=== PATIENT | male | born 1965 | race Two or more races ===

== ENCOUNTER 2017-02-12 12:37 | Day surgery (SDC) | payer OTHER ==
[2017-02-12 13:48] VITALS: BMI 23.6
[2017-02-12] MEDS ORDERED: MIDAZOLAM HCL 2 MG/2 ML SINGLE DOSE VIAL ONE (15:54)
[2017-02-12] MEDS ORDERED: PROPOFOL 20 ML ONE (15:54)
[2017-02-12] MEDS ORDERED: ceFAZolin SODIUM 1 GM VIAL ONE (15:56)
[2017-02-12] MEDS ORDERED: ONDANSETRON 4 MG/2 ML VIAL ONE ×2 (15:56→18:19)
[2017-02-12] MEDS ORDERED: KETOROLAC TROMETHAMINE 30 MG/1 ML VIAL ONE (15:56)
[2017-02-12] MEDS ORDERED: DEXAMETHASONE SOD PHOSPHATE 4 MG/1 ML VIAL ONE (15:56)
[2017-02-12] MEDS ORDERED: ROPIVACAINE HCL 0.5% 30ML VIAL ONE (17:03)
[2017-02-12] MEDS ORDERED: ONDANSETRON 4 MG/2 ML VIAL IVPUSH PRN (18:01)
[2017-02-12] MEDS ORDERED: oxyCODONE HCL 5 MG TABLET PO PRN ×2 (18:01)
[2017-02-12] MEDS ORDERED: PROMETHAZINE HCL 25 MG/1 ML VIAL IVPUSH PRN (18:01)
[2017-02-12] MEDS ORDERED: LACTATED RINGERS SOLUTION 1,000 ML IV SCH (18:15)
[2017-02-12 19:29] VITALS: TEMP 97.5
[2017-02-12 19:41] VITALS: BP 110/72; PULSE 68
--- NOTE | 2017-02-14 09:59 | OP ---
DATE OF OPERATION: 02/12/2017 PREOPERATIVE DIAGNOSIS: 1. Left triangular fibrocartilage complex tear. 2. Left ulnar impaction syndrome. POSTOPERATIVE DIAGNOSIS: 1. Left triangular fibrocartilage complex tear. 2. Left ulnar impaction syndrome. OPERATIVE PROCEDURE: 1. Left wrist operative arthroscopy with debridement of triangular fibrocartilage complex. 2. Left distal ulnar wafer resection. SURGEON: Khris Hendricks MD [employer]IVING MACHINE OPERATOR: FELISHA Carrion ANESTHESIA: General. COMPLICATIONS: None. ESTIMATED BLOOD LOSS: Minimal. INDICATIONS FOR PROCEDURE: The patient is a 51-year-old male with the above finding, indicated for operative treatment. The risks, benefits, and alternatives were discussed with the patient at length, and proper informed consent was obtained. DESCRIPTION OF PROCEDURE: After proper identification of the patient and the correct operative site, the patient was brought to the operating room and placed supine on the operating room table with prominences well padded. General anesthesia was provided by the anesthesiologist adequate for the procedure. Intravenous antibiotics were given. A time-out procedure was performed. Left upper extremity was prepped and draped in the usual sterile fashion. Well-padded tourniquet was placed with a sterile prep, Esmarch bandage to exsanguinate the left upper extremity. Tourniquet was inflated to 250 mmHg. Wrist arthroscopic traction tower was used with 10 pounds of InLine Traction and all points of contact well padded throughout the procedure. The 3-4 and 6R portals were used throughout the procedure. These portals were both made using skin incision only and blunt dissection under the joint capsule. A 2.7-mm gravity inflow arthroscope was used. Radiocarpal tunnel was visualized and found to be free of articular defects. Volar radiocarpal ligaments were intact. Mild synovitis was noted, and this was debrided with mechanical shaver. Mild chondromalacia was noted on the most ulnar aspect of the lunate and a more moderate chondromalacia was noted on the proximal aspect of the triquetrum. A full-thickness complex tear of the TFCC was noted with visualization of the distal ulna protruding through with significant cartilage dilation on the distal ulna noted. The TFCC tear was debrided with the mechanical shaver down to a healthy stable edge, and a quincy was used to perform a distal ulnar wafer procedure. The wound was irrigated with copious amounts of normal saline, and incisions were repaired with 5-0 nylon suture. Giorgio Black, the insurance assistant, was integral throughout the procedure. Procedure could not have been performed without a skilled operative insurance assistant. KHRIS HENDRICKS M.D. [id number]
== END 2017-02-12 18:40 | disposition home or self-care (01) ==
LOC: FASU 12:37
PROVIDERS: ATTEND Orthopaedic Surgery Hand Surgery
PROC: 0RBP4ZZ Excision of Left Wrist Joint, Percutaneous Endoscopic Approach (ICD-10-PCS; 2017-02-12)
PROC: 0RBP4ZZ Excision of Left Wrist Joint, Percutaneous Endoscopic Approach (ICD-10-PCS; principal; 2017-02-12 17:23)
DX: S63.592A Other specified sprain of left wrist, initial encounter (principal); M25.832 Other specified joint disorders, left wrist; M94.232 Chondromalacia, left wrist; X58.XXXA Exposure to other specified factors, initial encounter; Y93.9 Activity, unspecified; Y92.9 Unspecified place or not applicable
CPT/HCPCS: 94760